=== PATIENT | female | born 1970 | race Caucasian/White ===

== ENCOUNTER 2016-11-22 17:22 | Emergency (ER) | payer MEDICAID ==
[~2016-11-22] VITALS: Ht 147.3 cm; Wt 51.3 kg
[~2016-11-22 17:22] MED LIST: AMLO5TAB PO; BENA20TA PO; COZ50 PO; METF1000 PO
[2016-11-22 17:36] VITALS: BP 160/70
[2016-11-22] MEDS ORDERED: LIP80 PO (17:41)
[2016-11-22] MEDS ORDERED: CLOP300T1 PO (17:41)
--- NOTE | 2016-11-22 18:07 | NUR ---
Patient ambulated to bed 01.
--- NOTE | 2016-11-22 18:08 | NUR ---
Patient going to CT via wheelchair per tech.
--- NOTE | 2016-11-22 18:15 | NUR ---
PATIENT PRESENTS TO ED WITH C/O JAW PAIN AND HEADACHE X4 DAYS S/P STROKE;. DENIES N/V/D; SKIN IS PINK/WARM/DRY; AAOX4 WITH EVEN AND STEADY GAIT; LUNGS CLEAR BL; HR EVEN AND REGULAR; PT DENIES ANY FEVER, CP, SOB, OR COUGH AT THIS TIME; PATIENT STATES PAIN OF 5/10 AT THIS TIME; VSS; PATIENT POSITIONED FOR COMFORT; HOB ELEVATED; BEDRAILS UP X2; BED DOWN. ER MD MADE AWARE OF PT STATUS.
--- NOTE | 2016-11-22 19:05 | NUR ---
REPORT GIVEN TO CHARLOTTE VERDUZCO
[2016-11-22] MEDS ORDERED: predniSONE 20 MG TAB PO ONE (19:20)
[2016-11-22] MEDS ORDERED: HYDROcodone/APAP 5/325 MG 1 TAB TAB PO ONE (19:20)
[2016-11-22 20:06] VITALS: BP 141/78
--- NOTE | 2016-11-22 20:06 | NUR ---
Patient discharged with v/s stable. Written and verbal after care instructions given and explained. Patient alert, oriented and verbalized understanding of instructions. Ambulatory with steady gait. All questions addressed prior to discharge. ID band removed. Patient advised to follow up with PMD. Rx of ACYCLOVIR, ARTIFICIAL TEARS, PREDNISONE 50 MG given. Patient educated on indication of medication including possible reaction and side effects. Opportunity to ask questions provided and answered.
== END 2016-11-22 20:06 | disposition home or self-care (01) ==
LOC: MED 17:22
DX: G51.0 Bell's palsy (principal); J45.909 Unspecified asthma, uncomplicated; E11.9 Type 2 diabetes mellitus without complications; I10 Essential (primary) hypertension; Z88.5 Allergy status to narcotic agent
CPT/HCPCS: 70450; 93005; 99284; J7512

== ENCOUNTER 2016-11-25 03:30 | Emergency (ER) | payer MEDICAID ==
[~2016-11-25] VITALS: Ht 147.3 cm; Wt 51.3 kg
[~2016-11-25 03:30] MED LIST changes: +CLOP300T1 PO; +LIP80 PO
--- NOTE | 2016-11-25 03:46 | NUR ---
PT TAKEN TO BED 8
[2016-11-25 03:50] VITALS: BP 116/77
--- NOTE | 2016-11-25 03:53 | NUR ---
Dr. Yepez evaluating patient at bedside.
--- NOTE | 2016-11-25 03:53 | NUR ---
46/F BIB FAMILY W/C/O NECK PAIN RADIATING TO LEFT SHOULDER X2DAYS. WAS RECENTLY HOSPITALIZED AT [facility] FOR STROKE PER PATIENT. WAS HERE AT [facility] ON MON AND PRESCRIBED GLIPIZIDE. PATIENT BELIEVES AFTER TAKING IT SHE STARTED HAVING NECK PAIN. DENIES ANY N/V REPORTS DIARRHEA. HX:HTN,DM, BYRNE'S PALSY. NEURO CHECK DONE. DENIES ANY CP.
[2016-11-25] MEDS ORDERED: MORPHINE SULFATE 10 MG/ML SYR IM ONE (04:00)
--- NOTE | 2016-11-25 04:06 | NUR ---
PAIN MEDICATION GIVEN ORDERED WITH EDUCATION. VSS. PATIENT VERBALIZED UNDERSTANDING AND TOLERATED WELL. WILL CONTINUE TO MONITOR AND REASSESS.
[2016-11-25 04:45] VITALS: BP 120/74
--- NOTE | 2016-11-25 04:45 | NUR ---
Patient discharged with v/s stable. Written and verbal after care instructions given and explained BY DR JENNINGS. Patient alert, oriented and verbalized understanding of instructions. Ambulatory with steady gait. All questions addressed prior to discharge. ID band removed. Patient advised to follow up with PMD. Rx of SOMA given. Patient educated on indication of medication including possible reaction and side effects. Opportunity to ask questions provided and answered.
== END 2016-11-25 04:45 | disposition home or self-care (01) ==
LOC: MED 03:30
DX: S13.9XXA Sprain of joints and ligaments of unspecified parts of neck, initial encounter (principal); J45.909 Unspecified asthma, uncomplicated; E11.9 Type 2 diabetes mellitus without complications; I10 Essential (primary) hypertension; Z88.5 Allergy status to narcotic agent; Z86.69 Personal history of other diseases of the nervous system and sense organs; X58.XXXA Exposure to other specified factors, initial encounter; Y93.89 Activity, other specified; Y92.89 Other specified places as the place of occurrence of the external cause; Y99.8 Other external cause status
CPT/HCPCS: 96372; 99283; J2270